=== PATIENT | female | born 1975 | race Caucasian/White ===

== ENCOUNTER 2016-06-26 21:57 | Emergency (ER) | payer BC, OTHER ==
[~2016-06-26] VITALS: Ht 175.3 cm; Wt 113.4 kg
--- NOTE | ~2016-06-26 | EKG ---
[address] [place] [employer] [place] [address] ELECTROCARDIOGRAM REPORT Name: LYNDSEY NASCIMENTO [id number] Admission: 06/26/16 Attend Phys: Discharge: 06/27/16 Date of : 71 Report #: [id number] THIS REPORT FOR: //name// [facility] ED Test Date: 2016-06-26 Test Time: 22:31:30 Pat Name: LYNDSEY NASCIMENTO Department: Room: Gender: F Environmental Health And Safety Manager: LISA : 1975 Requested By: Fabby Ortega Order Number: [id number] MD: Mack Melton Measurements Intervals [place] Rate: 68 P: 22 ID: [id number] QRS: 53 QRSD: 86 T: 22 QT: 357 QTc: 380 Interpretive Statements Sinus rhythm No significant abnormality No previous ECG available for comparison Electronically Signed On 06-27-2016 9:05:41 CDT by Mack Melton [email or web address] <ELECTRONICALLY SIGNED> By: Mack Melton MD, [facility] 06/27/16 0905 [id number] Mack Melton MD, FACC /EPI
[2016-06-26 22:44] LABS: HEMATOCRIT 40.3 % (37.0-47.0)
[2016-06-26 22:50] LABS: ANION GAP 11 mmol/L (7-16); BUN 14 mg/dL (7-18); CALCIUM 8.7 mg/dL (8.5-10.1); CHLORIDE 104 mmol/L (98-107); CO2 22 mmol/L (21-32); CREATININE 0.8 mg/dL (0.6-1.0); GLUCOSE 127 mg/dL (74-106); SODIUM 137 mmol/L (136-145)
[2016-06-26 22:57] LABS: ALBUMIN 3.6 g/dL (3.4-5.0); ALKALINE PHOSPHATASE 102 U/L (46-116); SGOT 15 U/L (15-37); SGPT 18 U/L (30-65); TOTAL BILIRUBIN 0.3 mg/dL (<0.1-1.0); TOTAL PROTEIN 7.8 g/dL (6.4-8.2); TROPONIN-I < 0.04 ng/mL (<0.04-0.07)
[2016-06-26] MEDS ORDERED: DEPO-PROVE150 MG/1 M IM (23:13)
[2016-06-26 23:52] LABS: ABSOLUTE NEUTROPHILS 9.1 thou/uL (1.4-8.2); BASOPHILS 0.7 % (0.0-2.0); EOSINOPHILS 2.2 % (0.0-3.0); LYMPHOCYTES 27.3 % (24.0-44.0); MONOCYTES 9.2 % (1.0-8.0); POLYS 60.6 % (36.0-66.0)
[2016-06-27 00:02] LABS: HEMOGLOBIN 13.7 gm/dL (12.0-15.0); MANUAL DIFF NO; MCH 28.8 pg (26.0-34.0); MCHC 33.9 g/dL (28.0-37.0); MCV 85.1 fL (80.0-100.0); PLATELET COUNT 338 thou/uL (150-400); RBC 4.74 mil/uL (4.20-5.00); RDW 13.4 % (10.5-14.5); WBC 14.9 thou/uL (4.0-11.0)
[2016-06-27] MEDS ORDERED: PHENERGAN 25 MG25 M1 PO (00:13)
[2016-06-27 00:14] VITALS: BP 126/51
== END 2016-06-27 00:35 | disposition home or self-care (01) ==
LOC: ER 21:57
PROVIDERS: Physician Assistant
DX: R11.0 Nausea (principal); R00.2 Palpitations; Z88.8 Allergy status to other drugs, medicaments and biological substances